=== PATIENT | female | born 1980 | race Hispanic/Latino ===

== ENCOUNTER 2019-12-05 10:35 | Outpatient (CLI) | payer OTHER ==
--- NOTE | 2019-12-06 12:41 | MMO ---
Bilateral MAMMO Bilat Screen [facility]. CLINICAL HISTORY: Patient is 39 years old and is seen for screening. The patient has no family history of breast cancer. The patient has no personal history of cancer. VIEWS: The views performed were: bilateral craniocaudal with tomosynthesis and bilateral mediolateral oblique with tomosynthesis. FILMS COMPARED: The present examination has been compared to a prior imaging study performed at [facility] on 11/06/2014. This study has been interpreted with the assistance of computer-aided detection. MAMMOGRAM FINDINGS: The breasts are heterogeneously dense, which could obscure a lesion on mammography. There are no suspicious masses, suspicious calcifications, or new areas of architectural distortion. IMPRESSION: THERE IS NO MAMMOGRAPHIC EVIDENCE OF MALIGNANCY. A ROUTINE FOLLOW-UP MAMMOGRAM IN 1 YEAR IS RECOMMENDED. THE RESULTS OF THIS EXAM WERE SENT TO THE PATIENT. ACR BI-RADS Category 1 - Negative MAMMOGRAPHY NOTE: 1. A negative mammogram report should not delay a biopsy if a dominant of clinically suspicious mass is present. 2. Approximately 10% to 15% of breast cancers are not detected by mammography. 3. Adenosis and dense breasts may obscure an underlying neoplasm. Reported by: DEBBY CONNOR MD Electonically Signed: [id number]
== END 2019-12-05 10:36 | disposition home or self-care (01) ==
LOC: BICMAMMO 10:35
PROVIDERS: ATTEND Family Medicine
DX: Z12.31 Encounter for screening mammogram for malignant neoplasm of breast (principal)
CPT/HCPCS: 77063; 77067

== ENCOUNTER 2023-02-18 07:35 | Outpatient (CLI) | payer BC | END 2023-02-18 07:36 | disposition home or self-care (01) | LOC: ULT 07:35 | PROVIDERS: ATTEND Nurse Practitioner Family | DX: R10.11 Right upper quadrant pain (principal); R17 Unspecified jaundice | CPT/HCPCS: 76705 ==

== ENCOUNTER 2023-05-06 07:33 | Outpatient (CLI) | payer BC ==
[2023-05-06] MEDS ORDERED: Magnevist 469MG/ML 20 ML VIAL ONE (11:05)
== END 2023-05-06 07:34 | disposition home or self-care (01) ==
LOC: BICMRI 07:33
PROVIDERS: ATTEND Internal Medicine Gastroenterology
DX: R79.89 Other specified abnormal findings of blood chemistry (principal); R10.11 Right upper quadrant pain; R93.89 Abnormal findings on diagnostic imaging of other specified body structures; D70.9 Neutropenia, unspecified
CPT/HCPCS: 74183; A9579